=== PATIENT | male | born 1985 | race Caucasian/White ===

== ENCOUNTER → 2016-06-14 | Outpatient (CLI) | payer OTHER ==
[~2016-06-14] MED LIST: IOHEXOL 240 MG/ML 50ML VIAL. ONE; IOHEXOL 300 MG/ML 75 ML VIAL. IV ONE
--- NOTE | 2016-06-14 12:32 | RAD ---
Indication left-sided abdominal pain for several days. The abdomen was evaluated. The pelvis was not. 75 cc of Omnipaque 300 was administered intravenously as well as oral contrast. No prior CT imaging of the abdomen is available. No lung apices are clear. The most cephalad aspect of the abdomen was not imaged. The visualized liver and spleen appear unremarkable. The gallbladder is largely contracted but otherwise grossly normal. The pancreas appears unremarkable. There are no adrenal masses. The kidneys appear normal. Focal mass inflammatory process or acute finding in the abdomen is not seen. There is no significant adenopathy seen. IMPRESSION: No acute or significant finding seen in the abdomen PQRS Compliance Statement: One or more of the following individualized dose reduction techniques were utilized for this examination: 1. Automated exposure control 2. Adjustment of the mA and/or kV according to patient size 3. Use of iterative reconstruction technique
== END | disposition home or self-care (01) ==
LOC: CT 10:04
PROVIDERS: ATTEND Physician Assistant Medical
DX: R10.9 Unspecified abdominal pain (principal)
CPT/HCPCS: 74160; Q9966; Q9967

== ENCOUNTER → 2016-08-26 | Outpatient (CLI) | payer OTHER ==
--- NOTE | 2016-08-26 09:28 | RAD ---
Indication left third finger pain no history of injury. An AP view of the left hand was obtained as well as additional oblique and lateral imaging targeted to the long finger. No bony abnormality is seen
== END | disposition home or self-care (01) ==
LOC: DXRADRC 08:22
PROVIDERS: ATTEND Physician Assistant Medical
DX: M79.645 Pain in left finger(s) (principal)
CPT/HCPCS: 73140

== ENCOUNTER → 2017-12-13 | Outpatient (CLI) | payer OTHER ==
--- NOTE | 2017-12-13 11:14 | RAD ---
EXAM: 3 views left knee DATE: 12/13/2017 10:54 AM INDICATION: left knee pain x 2-3 months, no known fall or trauma to left knee, pt shielded COMPARISON: No Prior FINDINGS/ IMPRESSION: No evidence of acute fracture or dislocation. Joint spaces are preserved without significant degenerative/proliferative change. No knee joint effusion Electronically signed by: Seth Osuna MD (12/13/2017 11:10 AM) [facility]
== END | disposition home or self-care (01) ==
LOC: RAD 10:38
PROVIDERS: ATTEND Family Medicine
DX: M25.562 Pain in left knee (principal)
CPT/HCPCS: 73562

== ENCOUNTER 2019-02-14 09:20 | Emergency (ER) | payer OTHER ==
[~2019-02-14] VITALS: Ht 182.9 cm; Wt 102.7 kg
[2019-02-14] MEDS ORDERED: IV NORMAL SALINE 1,000ML 1,000 ML IV SCH (09:25)
[2019-02-14] MEDS ORDERED: IPRATRPIUM/ALBUTEROL 0.5/2.5MG 3 ML NEBU. NEB ONE (09:30)
--- NOTE | 2019-02-14 09:39 | PHYS DOC ---
Adult General Chief Complaint Chief Complaint: SEIZURE HPI HPI Patient is a 33-year-old male who arrives via EMS with report of possible seizure-like activity at home. Patient states that he had gone to the bathroom and was sitting on toilet when he began to feel lightheaded and called out to his dad for help. Patient's father apparently had arrived and patient was unresponsive. EMS questions whether father had seen some seizure-like activity but no postictal state was witnessed. EMS states the patient was alert and oriented upon their arrival. Patient does indicate that he feels a little bit lightheaded still and does complain of cough for the last several days. He denies any chest pain or shortness of breath. He denies any abdominal pain, nausea, vomiting or diarrhea. Patient does not believe that he is been running a fever, and he denies any headache.[] Review of Systems Review of Systems Constitutional: Denies fever or chills [] Respiratory: Positive cough without shortness of breath [] Cardiovascular: No additional information not addressed in HPI [] GI: Denies abdominal pain, nausea, vomiting or diarrhea [] Integument: Denies rash or skin lesions [] Neurologic: Denies headache, focal weakness or sensory changes [] All other systems were reviewed and found to be within normal limits, except as documented in this note. Current Medications Current Medications Current Medications Medications (Trade) Dose Ordered Sig/Mendoza Start Time Stop Time Status Last Admin Dose Admin Albuterol/ Ipratropium (Duoneb) 3 ml 1X ONCE 02/14/19 09:30 02/14/19 09:33 DC Sodium Chloride 1,000 ml @ 1,000 mls/hr Q1H 02/14/19 09:25 02/14/19 10:24 Allergies Allergies Allergies Coded Allergies Type Severity Reaction Last Updated Verified No Known Drug Allergies 06/14/16 No Physical Exam Physical Exam Constitutional: Well developed, well nourished, no acute distress, non-toxic appearance. [] HENT: Normocephalic, atraumatic, bilateral external ears normal, oropharynx moist, no oral exudates, nose normal. [] Eyes: PERRLA, EOMI, conjunctiva normal, no discharge. [] Neck: Normal range of motion, no tenderness, supple, no stridor. [] Cardiovascular: Regular rate and rhythm[] Lungs & Thorax: Bilateral breath sounds clear to auscultation [] Abdomen: Bowel sounds normal, soft, no tenderness. [] Skin: Warm, dry, no erythema, no rash. [] Extremities: No tenderness, no cyanosis, no clubbing, ROM intact. [] Neurologic: Alert and oriented X 3, no focal deficits noted. [] Current Patient Data Vital Signs Vital Signs Date Time Temp Pulse Resp B/P (MAP) Pulse Ox O2 Delivery O2 Flow Rate FiO2 02/14/19 09:20 99.5 88 16 116/79 (91) 95 Room Air EKG EKG [] Radiology/Procedures Radiology/Procedures [] Impressions: PROCEDURE: CT HEAD WO CONTRAST CT head without contrast dated 02/14/2019. No comparison available. Clinical indication: Syncope and possible seizure. TECHNIQUE: Contiguous axial imaging the head was performed from skull base to vertex. No contrast administered. One or more of the following individualized dose reduction techniques were utilized for this examination: 1. Automated exposure control 2. Adjustment of the mA and/or kV according to patient size 3. Use of iterative reconstruction technique. FINDINGS: Ventricles and sulci are mildly prominent for age. No midline shift or mass effect. Brain parenchyma is of normal attenuation. No hemorrhage or extra-axial collection. Posterior fossa and brainstem unremarkable. Visualized paranasal sinuses and mastoid air cells are clear. No apparent calvarial abnormality. IMPRESSION: No evidence of acute intracranial abnormality. Electronically signed by: Diego Moise MD (02/14/2019 10:17 AM) [facility] [place] PROCEDURE: CHEST PA & LATERAL EXAM: CHEST 2 VIEWS. HISTORY: Cough. COMPARISON: 05/07/2016. FINDINGS: Frontal and lateral views of the chest are obtained. An airspace infiltrate in the right upper lobe is consistent with pneumonia. There is no pneumothorax or pleural effusion. The heart is not enlarged. IMPRESSION: 1. Mild right upper lobe pneumonia. Electronically signed by: Jonathan Bahena MD (02/14/2019 10:18 AM) [facility] DICTATED AND SIGNED BY: LUNA BAHENA MD DATE: 02/14/19 1018 Course & Med Decision Making Course & Med Decision Making Pertinent Labs and Imaging studies reviewed. (See chart for details) [] Dragon Disclaimer Dragon Disclaimer This electronic medical record was generated, in whole or in part, using a voice recognition dictation system. Departure Departure: Impression: Primary Impression: Syncope Additional Impression: CAP (community acquired pneumonia) Disposition: 01 HOME, SELF-CARE Condition: STABLE Referrals: EVELYN CARR (PCP) Patient Instructions: Pneumonia, Adult, Syncope Scripts Amoxicillin/Potassium Clav (AUGMENTIN 875-125 TABLET) 1 Each Tablet 1 TAB PO BID for infection for 10 Days, #20 TAB 0 Refills Prov: MARBELLA ENGLAND Jr. DO 02/14/19 Problem Qualifiers Primary Impression: Syncope Syncope type: unspecified Qualified Codes: R55 - Syncope and collapse Additional Impression: CAP (community acquired pneumonia) Laterality: right Lung location: upper lobe of lung Qualified Codes: J18.9 - Pneumonia, unspecified organism MARBELLA ENGLAND Jr. DO Feb 14, 2019 09:39
[2019-02-14 09:56] LABS: BASO % 0 % (0-3); EOS # 0.1 x10^3/uL (0.0-0.7); EOS % 1 % (0-3); HEMATOCRIT 46.7 % (39.0-53.0); HEMOGLOBIN 15.6 g/dL (13.0-17.5); LYMPH # 1.8 x10^3/uL (1.0-4.8); LYMPH % 36 % (24-48); MEAN CORPUSCULAR HEMOGLOBIN 29 pg (25-35); MEAN CORPUSCULAR HGB CONC 33 g/dL (31-37); MEAN CORPUSCULAR VOLUME 86 fL (79-100); MONO # 0.6 x10^3/uL (0.0-1.1); MONO % 12 % (0-9); NEUT # 2.5 x10^3uL (1.8-7.7); NEUT % 51 % (31-73); PLATELET COUNT 251 x10^3/uL (140-400); RED BLOOD COUNT 5.42 x10^6/uL (4.30-5.70); RED CELL DISTRIBUTION WIDTH 13.1 % (11.5-14.5); WHITE BLOOD COUNT 4.9 x10^3/uL (4.0-11.0)
[2019-02-14 10:04] LABS: ALBUMIN 3.3 g/dL (3.4-5.0); ALBUMIN/GLOBULIN RATIO 0.8 (1.0-1.7); CALCIUM 8.6 mg/dL (8.5-10.1); CREATININE 1.1 mg/dL (0.7-1.3); GFR 77.6; POTASSIUM 3.7 mmol/L (3.5-5.1); TOTAL BILIRUBIN 0.6 mg/dL (0.2-1.0); TOTAL PROTEIN 7.6 g/dL (6.4-8.2)
--- NOTE | 2019-02-14 10:20 | RAD ---
CT head without contrast dated 02/14/2019. No comparison available. Clinical indication: Syncope and possible seizure. TECHNIQUE: Contiguous axial imaging the head was performed from skull base to vertex. No contrast administered. One or more of the following individualized dose reduction techniques were utilized for this examination: 1. Automated exposure control 2. Adjustment of the mA and/or kV according to patient size 3. Use of iterative reconstruction technique. FINDINGS: Ventricles and sulci are mildly prominent for age. No midline shift or mass effect. Brain parenchyma is of normal attenuation. No hemorrhage or extra-axial collection. Posterior fossa and brainstem unremarkable. Visualized paranasal sinuses and mastoid air cells are clear. No apparent calvarial abnormality. IMPRESSION: No evidence of acute intracranial abnormality. Electronically signed by: Diego Moise MD (02/14/2019 10:17 AM) [facility] [place]
--- NOTE | 2019-02-14 10:22 | RAD ---
EXAM: CHEST 2 VIEWS. HISTORY: Cough. COMPARISON: 05/07/2016. FINDINGS: Frontal and lateral views of the chest are obtained. An airspace infiltrate in the right upper lobe is consistent with pneumonia. There is no pneumothorax or pleural effusion. The heart is not enlarged. IMPRESSION: 1. Mild right upper lobe pneumonia. Electronically signed by: Jonathan Bahena MD (02/14/2019 10:18 AM) [facility]
[2019-02-14 10:26] LABS: INFLUENZA A PATIENT NEGATIVE (NEGATIVE); INFLUENZA B PATIENT NEGATIVE (NEGATIVE)
[2019-02-14] MEDS ORDERED: IV NORMAL SALINE 50ML 50 ML ONE (11:09)
[2019-02-14] MEDS ORDERED: cefTRIAXone SODIUM 1 GM VIAL ONE (11:09)
[2019-02-14] MEDS ORDERED: IV NORMAL SALINE 1,000ML 1,000 ML IV ONE (11:15)
[2019-02-14] MEDS ORDERED: AMOX1TAB61 PO (12:38)
[2019-02-14 12:51] VITALS: BP 129/54
--- NOTE | 2019-02-15 01:58 | EKG ---
[address] [address] Test Date: 2019-02-14 Test Time: 09:37:43 Pat Name: JENNA MEJIAS Department: Room: Gender: M Ssis Developer: : [id number] Requested By: MARBELLA ENGLAND Order Number: [id number] Reading MD: Frantz Lara Measurements Intervals [place] Rate: 81 P: 39 AL: 146 QRS: 71 QRSD: 90 T: 14 QT: 346 QTc: 402 Interpretive Statements SINUS RHYTHM Electronically Signed On 02-15-2019 14:13:05 PAINTER HAND by Frantz Lara
== END 2019-02-14 12:49 | disposition home or self-care (01) ==
LOC: ER 09:20
DX: R55 Syncope and collapse (principal); J18.9 Pneumonia, unspecified organism
CPT/HCPCS: 36415; 70450; 71046; 80053; 82947; 83605; 85025; 87804; 93005; 94640; 96361; 96365; 99285; J0696; J7620; J7030